=== PATIENT | male | born 1965 | race Caucasian/White ===

== ENCOUNTER 2018-04-06 00:39 | Inpatient (IN) | payer OTHER ==
[2018-04-05 15:46] LABS: INR 0.96
[2018-04-06] VITALS (15 sets, daily range): BP systolic 104–169; BP diastolic 52–110
[~2018-04-06] VITALS: Ht 180.3 cm; Wt 122.5 kg
[~2018-04-06 00:39] MED LIST: AMLO2.5T74 PO; ASPI-870 PO; ATOR10TA24 PO; METO25TA93 PO; MULT-1124 PO; OMEG-11 PO; PROTANDIM PO; UBID100C48 PO
[2018-04-06] MEDS ORDERED: FAMOTIDINE 20 MG TAB PO ONE (08:20)
[2018-04-06] MEDS ORDERED: fentaNYL CITR 100 MCG/2 ML AMP ONE (09:12)
[2018-04-06] MEDS ORDERED: LIDOCAINE MPF 1% 5 ML VIAL ONE (09:13)
[2018-04-06] MEDS ORDERED: PREGABALIN 150 MG CAPSULE PO ONE (10:00)
[2018-04-06] MEDS ORDERED: CELECOXIB 200 MG CAP PO ONE (10:00)
[2018-04-06] MEDS ORDERED: LIDOCAINE/SOD BICARB 8.4% SYR ID ONE (10:00)
[2018-04-06] MEDS ORDERED: NORMOSOL R SOLN(*) 1000 ML BAG 1,000 ML IV PRN (10:00)
[2018-04-06] MEDS ORDERED: CLINDAMYCIN(*) 900 MG/NS 50 ML 50 ML IVPB ONE (10:00)
[2018-04-06] MEDS ORDERED: MIDAZOLAM 2 MG/2 ML VIAL IVP PRN (10:00)
[2018-04-06] MEDS ORDERED: BACITRACIN 50000 UNIT/VIAL 100,000 UNIT in NS 0.9% 3000 ML IRRIGATION BAG 3,000 ML IR ONE (10:00)
[2018-04-06] MEDS ORDERED: cloNIDine EPIDUR INJ 100MCG/ML 40 MCG, ROPIVACAINE 0.5% 20 ML VIAL 25 ML, EPINEPHrine H... EPI ONE (10:00)
[2018-04-06] MEDS ORDERED: TRANEXAMIC AC 1000 MG/10ML SDV 1,000 MG in DEXTROSE 5% 50 ML BAG 50 ML IV ONE (10:00)
[2018-04-06] MEDS ORDERED: ACETAMINOPHEN 500 MG TAB PO ONE (10:00)
[2018-04-06] MEDS ORDERED: FAMOTIDINE 20 MG/50 ML PREMIX IVPB ONE (10:00)
[2018-04-06] MEDS ORDERED: PHENYLEPHRINE 10 MG/1 ML VIAL ONE (10:46)
[2018-04-06] MEDS ORDERED: DEXAMETHASONE SOD PHOS 10MG/ML ONE (11:26)
[2018-04-06] MEDS ORDERED: MIDAZOLAM 2 MG/2 ML VIAL ONE (11:26)
[2018-04-06] MEDS ORDERED: PROPOFOL EMUL(*) 10MG/ML 20 ML 20 ML ONE (11:26)
[2018-04-06] MEDS ORDERED: ONDANSETRON 4 MG/2 ML VIAL ONE (11:26)
[2018-04-06] MEDS ORDERED: diphenhydrAMINE 25 MG CAP PO PRN (13:40)
[2018-04-06] MEDS ORDERED: MAGNESIUM CITRATE 300 ML BTL PO PRN (13:40)
[2018-04-06] MEDS ORDERED: HYDROmorphone HCL 2 MG/ML SDV IVP PRN (13:40)
[2018-04-06] MEDS ORDERED: PROMETHAZINE 25 MG/ML 1 ML AMP IVP PRN (13:40)
[2018-04-06] MEDS ORDERED: FLUSH 10 ML SYR IVP PRN (13:40)
[2018-04-06] MEDS ORDERED: ZOLPIDEM TARTRATE 5 MG TAB PO PRN (13:40)
[2018-04-06] MEDS ORDERED: LR 1000 ML BAG 1000 ML IV PRN (13:40)
[2018-04-06] MEDS ORDERED: BISACODYL 10 MG SUPP PR PRN (13:40)
[2018-04-06] MEDS ORDERED: ONDANSETRON 4 MG/2 ML VIAL IVP PRN (13:40)
[2018-04-06] MEDS ORDERED: MAGNESIUM HYDROXIDE* 30ML UDCP PO PRN (13:40)
[2018-04-06] MEDS ORDERED: diphenhydrAMINE 50 MG/ML VIAL IVP PRN (13:40)
--- NOTE | 2018-04-06 14:51 | OPERATIVE REPORT 1 ---
EVENT DATE: April 06, 2018 SURGEON: Russ Ghosh MD ANESTHESIOLOGIST: Aki Kim MD ANESTHESIA: General plus spinal. CASH POSTING SPECIALIST: CAROLINE Donahue PREOPERATIVE DIAGNOSIS Right knee osteoarthritis. POSTOPERATIVE DIAGNOSIS Right knee osteoarthritis. PROCEDURE PERFORMED Right total knee arthroplasty. FINDINGS The patient had a significant amount of arthritic change associated with his knee and a large posterior osteophyte, but we were able to move it and do a total knee replacement. ESTIMATED BLOOD LOSS About 250 mL. DRAINS None. COMPLICATIONS None. TOURNIQUET TIME Up for 14 minutes during cementation only. IMPLANTS USED [place] [employer] size 7 posterior stabilized femur with a size 6 rotating platform tibia and a 6 x 7 rotating platform poly in between the two and a 38 mm patella. SPECIMENS None. INDICATIONS AND HISTORY This patient is a 52-year-old male who presented to my clinic for evaluation of a right knee pain and irritation going on for some time. He continued to have pain and irritation despite conservative management. Therefore, we got him set up to do a total knee arthroplasty today, April 06, 2018. The patient was warned that he may have a revision given his young age associated with this, and he said he understood this. DESCRIPTION OF PROCEDURE As the patient was brought into the operating room, he and the procedure were both verified. He was placed supine on the operating table and induced and intubated by Anesthesia after being given a spinal. The right lower extremity was then prepped and draped in the usual fashion. A timeout was observed verifying the correct patient and procedure. The standard incision was made over the anterior aspect of the knee, and it was taken through the skin and subcutaneous tissue. I was able to cauterize the bleeders on the way through, and then I was able to go through a medial parapatellar approach. Once I was able to get into this area, I was then able to expose the knee and then remove the anterior aspects of the menisci on both sides and also the anterior fat pad underneath the patellar tendon. Once I was able to remove all this, I then gained good access to subluxate the patella and then was able to gain access to the femur with high flexion. I then took an osteotome and removed the osteophytes over the ACL and PCL and then removed as much of the ACL and PCL that I could in order to gain better access to the femur. I then put the intramedullary guide from the Attune system down the central portion of the femur. I was then able to put the standard [id number] cutting guide to cut 9 mm off the distal femur and then cut that without any difficulty, put the sizer on it sized to a 7, and so therefore the 7 four-in-one cutting block was utilized. I made all four cuts, removed that, and then made the notch cuts without any difficulty. I then removed some of the posterior osteophytes through this area. I then turned attention to the tibia where I was able to remove the proximal aspect of the tibia, which I took a couple millimeters off the medial side which is the short side. I was then able to remove the rest of the osteophytes off the posterior aspect of the femur and the tibia. This did take quite a bit of work to get all these out, but I was able to remove the majority of the large osteophytes in this area and then get it to a clean surface. This then allowed for full extension. I then prepped the tibia in the standard fashion with the 6 tray as that fit better than the 7. I was then able to put the keel in without any difficulty and then trialed the components without any major issues. We trialed a 6 mm poly first and then went to a 7 mm. The 7 mm was found to be just a little bit better for stability in the anterior-posterior drawer type direction, but still went out to full extension. I then everted the patella and then cut the patella in the standard fashion, cutting 9.5 mm off of this. This was then followed by sizing to a 38 mm patella and then drilling the holes and doing the trial patella without any issues. The tourniquet was then inflated, and then the final components were cemented in place after cleaning off the wound with copious amounts of saline using pulsatile lavage, which we had throughout the case. I then allowed the cement to harden. I let the tourniquet down after about 14 minutes, and then the flexion and extension showed that the patella tracked very well and had no signs of skipping or clicking associated with this. I then closed the medial parapatellar approach with #1 Stratafix sutures, followed by 2-0 Vicryl in the subcutaneous tissue, and then 2-0 Stratafix in the subcutaneous aspect. This was then followed by a subcuticular 4-0 running Monocryl, and then the bio- occlusive dressing. The patient was then awakened, extubated, and transferred to PACU in stable condition. ABDON
[2018-04-06] MEDS ORDERED: AMLO-96 PO (15:31)
[2018-04-06] MEDS ORDERED: ATOR40TA24 PO (15:31)
--- NOTE | 2018-04-06 15:37 | Hospitalist Consultation ---
History of Present Illness Requesting Physician Dr. Ghosh Reason for Consult Medical Management Chief Complaint s/p right knee replacement History of Present Illness He was admitted s/p right knee replacement. It is reported the surgery went well and without complication. History Problems: (1) CAD (coronary artery disease) Status: Chronic (2) Hyperlipidemia Status: Chronic (3) Hypertension Status: Chronic (4) NADIRA (obstructive sleep apnea) Status: Chronic Home Meds Reported Medications Atorvastatin Calcium (LIPITOR) 40 Mg Tablet, 1 TAB PO QDAY, TAB 04/06/18 Amlodipine Besylate (AMLODIPINE BESYLATE) 5 Mg Tablet, 1 TAB PO QDAY, TAB 04/06/18 [Protandim] No Conflict Check, 1 TAB PO DAILY 03/29/18 [place]-3 Fatty Acids/Fish Oil (FISH OIL 1,000 MG CAPSULE) 1 Each Capsule, 1 EACH PO DAILY, CAPSULE 03/29/18 Multivitamin (DAILY VITAMIN FORMULA) 1 Each Tablet, 1 EACH PO DAILY 03/29/18 Aspirin (Children's Aspirin) 81 Mg Tab.chew, 1 TAB PO DAILY 03/29/18 Metoprolol Tartrate (METOPROLOL TARTRATE) 25 Mg Tablet, 0.5 TAB PO BID, TAB 03/29/18 Discontinued Reported Medications Amlodipine Besylate (AMLODIPINE BESYLATE) 2.5 Mg Tablet, 1 TAB PO QDAY 03/29/18 Ubidecarenone (COQ-10) 100 Mg Capsule, 100 MG PO DAILY, CAPSULE 03/29/18 Atorvastatin Calcium (LIPITOR) 10 Mg Tablet, 0.5 TAB PO QDAY, TAB 03/29/18 Allergies: Coded Allergies: cephalexin (Verified Allergy, Mild, RASH, 03/29/18) Patient History: Unobtainable family history due to adoption Hx Smoking: No Smoking Status: Never Smoker When Quit Tobacco?: 08/09/1990 Caffeine Intake: Coffee Caffeine/Cups Per Day: 30 OZ/DAY Hx Alcohol Use: Yes When Quit Alcohol?: ONE MONTH AGO Hx Substance Use Disorder: No Social Drug Use: Never Review of Systems All Systems Reviewed/Normal: Yes, Except as Noted Exam Vital Signs Vital Signs Date Time Temp Pulse Resp B/P (MAP) Pulse Ox O2 Delivery O2 Flow Rate FiO2 04/06/18 15:07 95 Room Air 04/06/18 14:53 98.7 55 16 117/67 (84) 1.0 General Appearance: Alert, Awake, No Acute Distress, Afebrile Neuro: No Gross deficits Cardiovascular: Regular Rate and Rhythm Respiratory: No Respiratory Distress, Clear to Auscultation GI: Abd Soft and Non-Tender Psych: Alert & Oriented X3, Appropriate Mood & Affect Assessment and Plan Problems: (1) Status post right knee replacement Status: Acute Assessment & Plan: Followed by Dr. Ghosh. He will be placed on Aspirin daily for DVT prophylaxis. He has no history of DVT or PE. (2) Hypertension Status: Chronic Assessment & Plan: He is on chronic treatment with Metoprolol and Amlodipine. Both medications were started with hold parameters. (3) Hyperlipidemia Status: Chronic Assessment & Plan: He is on chronic treatment with Atorvastatin. (4) CAD (coronary artery disease) Status: Chronic Assessment & Plan: He had three cardiac stents placed in 2004. Denies [place]. He had negative stress test 4 years ago. Denies any CP/SOB post-op. (5) NADIRA (obstructive sleep apnea) Status: Chronic Assessment & Plan: He did bring his CPAP to use during admission. Venous Thromboembolism Antithrombotics Is Pt On Any Antithrombotics?: No Problem Qualifiers (1) Hypertension: Hypertension type: essential hypertension Qualified Codes: I10 - Essential (primary) hypertension ANGIE UNDERWOOD Apr 06, 2018 15:37
--- NOTE | 2018-04-06 16:24 | RADIOLOGY IMAGING REPORT ---
FACILITY: [facility] PATIENT NAME: Christian Rocha : 1965 MR: [id number] V: [id number] EXAM DATE: ORDERING PHYSICIAN: ALTON DUENAS TECHNOLOGIST: Location: [facility] - [place], [place] Patient: Christian Rocha : 1965 Visit/Account:[id number] Date of Sevice: 04/06/2018 KNEE LIMITED RIGHT Indication: Postop right knee Comparison: None available Findings: There are post surgical changes from 3 part TKA. Components are well seated and in neutral alignment. No abnormal lucencies are seen. IMPRESSION: 1. Unremarkable postop 3 part right TKA Report Dictated By: Dirk Mohan at 04/06/2018 4:20 PM Report E-Signed By: Dirk Mohan at 04/06/2018 4:21 PM WSN:[id number]
[2018-04-06] MEDS ORDERED: CLINDAMYCIN(*) 600 MG/NS 50 ML 50 ML IVPB SCH (18:00)
[2018-04-06] MEDS: CLINDAMYCIN 150 MG CAP PO SCH (18:06)
[2018-04-06] MEDS ORDERED: METOPROLOL TART 50 MG TAB PO SCH (21:00)
[2018-04-06] MEDS ORDERED: ASPIRIN 325 MG TAB PO SCH (21:00)
[2018-04-06] MEDS ORDERED: ATORVASTATIN 40 MG TAB PO SCH ×3 (21:30→22:00)
[2018-04-07] MEDS: CLINDAMYCIN 150 MG CAP PO SCH ×2 (02:01→10:07)
[2018-04-07 02:02] VITALS: BP 121/85
[2018-04-07] MEDS ORDERED: ASPI-757 PO (08:06)
[2018-04-07] MEDS ORDERED: METOPROLOL TART 50 MG TAB PO SCH (09:00)
[2018-04-07] MEDS ORDERED: ATORVASTATIN CALCIUM PO SCH (09:00)
[2018-04-07] MEDS ORDERED: amLODIPine BESYL(*) 2.5 MG TAB PO SCH (09:00)
[2018-04-07] MEDS ORDERED: amLODIPine BESYL(*) 5 MG TAB PO SCH (09:00)
--- NOTE | 2018-04-07 09:23 | Hospitalist Progress Note ---
Subjective Progress Notes Subjective He has no complaints this morning. He had no acute events overnight. Patient Complains of: Cardiovascular: No: Chest Pain Respiratory: No: Shortness of Breath Physical Exam Vital Signs Date Time Temp Pulse Resp B/P (MAP) Pulse Ox O2 Delivery O2 Flow Rate FiO2 04/07/18 02:02 97.7 59 16 121/85 (97) 91 Room Air 04/06/18 21:41 1.0 Intake and Output 04/07/18 06:59 Intake Total 4700 ml Output Total 150 ml Balance 4550 ml Intake Oral 2000 ml IV Total 1350 ml Other 1350 ml Output Estimated Blood Loss 150 ml # Voids 3 General Appearance: Alert, Awake, No Acute Distress, Afebrile Neuro: No Gross deficits Cardiovascular: Regular Rate and Rhythm Respiratory: No Respiratory Distress, Clear to Auscultation GI: Soft and Non-Tender Psych: Alert & Oriented X3, Appropriate Mood & Affect Result Diagram: 04/07/18 0545 Assessment and Plan Problems: (1) Status post right knee replacement Status: Acute Assessment & Plan: Followed by Dr. Ghosh. He will be placed on Aspirin daily for DVT prophylaxis. He has no history of DVT or PE. (2) Hypertension Status: Chronic Assessment & Plan: He is on chronic treatment with Metoprolol and Amlodipine. Both medications were started with hold parameters. (3) Hyperlipidemia Status: Chronic Assessment & Plan: He is on chronic treatment with Atorvastatin. (4) CAD (coronary artery disease) Status: Chronic Assessment & Plan: He had three cardiac stents placed in 2004. Denies [place]. He had negative stress test 4 years ago. Denies any CP/SOB post-op. (5) NADIRA (obstructive sleep apnea) Status: Chronic Assessment & Plan: He did bring his CPAP to use during admission. Exam Sepsis Risk: No Definite Risk Problem Qualifiers (1) Hypertension: Hypertension type: essential hypertension Qualified Codes: I10 - Essential (primary) hypertension ANGIE UNDERWOOD Apr 07, 2018 09:23
== END 2018-04-07 12:00 | disposition home or self-care (01) | DRG 470 ==
LOC: OR 00:39 → INTOOBSV 15:42 → OBSVTOIN 15:42 → MED 15:42
PROVIDERS: ADMIT Orthopaedic Surgery; ATTEND Orthopaedic Surgery
PROC: 0SRC0JZ Replacement of Right Knee Joint with Synthetic Substitute, Open Approach (ICD-10-PCS; principal; 2018-04-06 10:29)
DX: M17.11 Unilateral primary osteoarthritis, right knee (principal); M25.761 Osteophyte, right knee; I25.10 Atherosclerotic heart disease of native coronary artery without angina pectoris; E78.5 Hyperlipidemia, unspecified; E66.9 Obesity, unspecified; I10 Essential (primary) hypertension; G47.33 Obstructive sleep apnea (adult) (pediatric); Z88.8 Allergy status to other drugs, medicaments and biological substances; Z99.81 Dependence on supplemental oxygen; Z95.1 Presence of aortocoronary bypass graft; Z68.37 Body mass index [BMI] 37.0-37.9, adult
CPT/HCPCS: 36415; 85014; 85018; 85610; 86850; 86900; 86901; 97161; C1713; C1776; J0171; J0735; J1100; J1885; J2001; J2250; J2370; J2405; J2704; J2795; J3010; J3490; J7050; J7060